=== PATIENT | male | born 1990 | race Caucasian/White ===

== ENCOUNTER 2016-11-25 19:18 | Emergency (ER) | payer OTHER ==
[2016-11-25] MEDS ORDERED: Ketorolac INJ* 60 MG/2 ML VIAL IM ONE (19:26)
[2016-11-25 19:28] VITALS: BP 156/102
--- NOTE | 2016-11-25 20:03 | ED ---
Jesus Talbert Michael, scribed for Bebo Alcocer MD on 11/25/16 at 1929 . 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 The pt reports that he was washing his face when he slipped on water in front of the door of his cell. He landed on his back and hit his head on the ground. The pt c/o neck pain and thoracic back pain which is aggravated with movement. The neck and back pain started immediately after the fall. The pt was brought into the ED with a C-spine brace. He denies DIAMOND and LOC. - History of Current Complaint Chief Complaint: EDBackInjuryPain Stated Complaint: BACK PAIN Hx Obtained From: Patient, EMS, Medical Records Mechanism of Injury: Fall Loss of Consciousness: no loss of consciousness Onset/Duration: Started Minutes Ago, Still Present Onset of Pain: Immediate Onset Severity: Moderate Current Severity: Moderate Aggravating Factor(s): Movement Alleviating Factor(s): Nothing Associated Signs & Symptoms: Positive: Negative - DIAMOND, Other: - back pain and neck pain. Negative: Loss of Consciousness - Allergy/Home Medications Allergies/Adverse Reactions: Allergies Allergy/AdvReac Type Severity Reaction Status Date / Time No Known Allergies Allergy Verified 05/27/16 17:27 PMH/Surg Hx/FS Hx/Imm Hx Endocrine/Hematology History: Denies: Hx Anticoagulant Therapy, Hx Diabetes, Hx Thyroid Disease Cardiovascular History: Denies: Hx Hypertension Respiratory History: Reports: Hx Asthma Denies: Hx Chronic Obstructive Pulmonary Disease (COPD) GI History: Denies: Hx Ulcer History: Denies: Hx Renal Disease Psychiatric History: Denies: Hx Eating Disorder - Surgical History Surgery Procedure, Year, and Place: LEFT ELBOW, RIGHT WRIST as a child - Immunization History Date of Tetanus Vaccine: UNK Date of Influenza Vaccine: 2013 Infectious Disease History: Denies: Hx Hepatitis, Hx Human Immunodeficiency Virus (HIV) - Family History Known Family History: Positive: Hypertension, Diabetes - Social History Occupation: Unemployed Lives: Alone - Senior Living Alcohol Use: Occasionally Substance Use Type: Reports: Marijuana Hx Tobacco Use: Yes Smoking Status (MU): Current Every Day Smoker Type: Cigarettes Amount Used/How Often: 1ppd Length of Time of Smoking/Using Tobacco: since age 8-9 Have You Smoked in the Last Year: Yes Review of Systems Positive: Other - back pain. neck pain. Negative: Headache, Syncope All Other Systems Reviewed And Are Negative: Yes Physical Exam Triage Information Reviewed: Yes Vital Signs On Initial Exam: Initial Vitals Temp Pulse Resp BP Pulse Ox 98.9 F 84 20 156/102 95 11/25/16 19:22 11/25/16 19:22 11/25/16 19:22 11/25/16 19:22 11/25/16 19:22 Vital Signs Reviewed: Yes Appearance: Positive: Well-Appearing, Pain Distress - mild discomfort Skin: Positive: Warm Head/Face: Positive: Normal Head/Face Inspection Eyes: Positive: EOMI, MARTÍNEZ ENT: Positive: Hearing grossly normal Neck: Positive: Supple, Tenderness @ - mild diffuse Respiratory/Lung Sounds: Positive: Clear to Auscultation, Breath Sounds Present Cardiovascular: Positive: RRR Abdomen Description: Positive: Nontender, Soft Bowel Sounds: Positive: Present Musculoskeletal: Positive: Strength/ROM Intact, Other - mild diffuse tenderness thoraco/lumbar area Neurological: Positive: Sensory/Motor Intact, Alert, Oriented to Person Place, Time, Reflexes Intact Diagnostics - Vital Signs Vital Signs Temp Pulse Resp BP Pulse Ox 11/25/16 19:28 98.9 F 84 20 156/102 95 11/25/16 19:22 98.9 F 84 20 156/102 95 - Laboratory Lab Statement: Any lab studies that have been ordered have been reviewed, and results considered in the medical decision making process. - CT CT Lumbar Spine CT Interpretation: No Acute Changes - MILD DEGENERATIVE CHANGES. NO ACUTE OSSEOUS INJURY TO THE LUMBAR SPINE. CT Interpretation Completed By: Radiologist CT Thoracic Spine CT Interpretation: No Acute Changes CT Interpretation Completed By: Radiologist CT Cervical Spine CT Interpretation: No Acute Changes CT Interpretation Completed By: Radiologist Re-Evaluation - Re-Evaluation First Eval Change: Improved Adult Trauma Course/Dx - Diagnoses Provider Diagnoses: back pain post status fall Discharge - Discharge Plan Condition: Stable Disposition: HOME Patient Education Materials: Back Pain (ED) Referrals: No Primary Care Phys,NOPCP [Primary Care Provider] - Additional Instructions: You should take Advil or Ibuprofen for your back pain. Please follow up with local [facility] within the next 2-3 days. The documentation as recorded by the Jesus pitt Michael accurately reflects the service I personally performed and the decisions made by me, Bebo Alcocer MD.
--- NOTE | 2016-11-25 20:04 | RAD ---
HISTORY: Fall, back pain COMPARISONS: None TECHNIQUE: Multiple contiguous axial CT scans were obtained of the cervical spine without intravenous contrast, with coronal and sagittal multiplanar reformations. FINDINGS: BRAIN: The visualized brain is unremarkable CENTRAL CANAL: Evaluation of the central canal is limited on CT technique, however there is no obvious canalicular mass or epidural hemorrhage. ALIGNMENT: The alignment is normal, without subluxation or dislocation. VERTEBRAL BODIES: The odontoid process is intact. The atlantoaxial intervals are symmetric. The vertebral bodies are normal in attenuation, without fracture. JOINTS: There is no subluxation or dislocation MUSCULATURE: Unremarkable INTERVERTEBRAL DISCS: The intervertebral disc spaces are relatively preserved in height. AXIAL IMAGES: On axial images, there is no osseous neural foraminal narrowing or central canal stenosis. SOFT TISSUES: The visualized soft tissues of the neck are unremarkable. The prevertebral fat stripe is preserved. OTHER: None. IMPRESSION: NO ACUTE OSSEOUS INJURY TO THE CERVICAL SPINE
--- NOTE | 2016-11-25 20:04 | RAD ---
HISTORY: Fall, back pain COMPARISONS: None TECHNIQUE: Multiple contiguous axial CT scans were obtained of the lumbar spine without intravenous contrast, with coronal and sagittal multiplanar reformations. FINDINGS: SPINAL CANAL: Evaluation of the central canal is limited on CT technique; however, there is no obvious canalicular mass or epidural hemorrhage. ALIGNMENT: The alignment is normal. VERTEBRAL BODIES: There is no displaced fracture. There is a hemangioma of L3. There are reactive end plate changes from a Schmorl's node at L3-L4 JOINTS: Unremarkable MUSCULATURE: Unremarkable INTERVERTEBRAL DISCS: There is diffuse loss of intervertebral disc height throughout the spine. AXIAL IMAGES: T12-L1: There is no osseous neural foraminal narrowing or central canal stenosis. L1-L2: There is no osseous neural foraminal narrowing or central canal stenosis. L2-L3: There is no osseous neural foraminal narrowing or central canal stenosis. L3-L4: There is no osseous neural foraminal narrowing or central canal stenosis. L4-L5: There is mild disc bulge. There is no osseous neural foraminal narrowing or central canal stenosis. L5-S1: There is mild disc bulge. There is no osseous neural foraminal narrowing or central canal stenosis. SOFT TISSUES: The visualized soft tissues of the abdomen are unremarkable. OTHER: None IMPRESSION: MILD DEGENERATIVE CHANGES. NO ACUTE OSSEOUS INJURY TO THE LUMBAR SPINE.
--- NOTE | 2016-11-25 20:06 | RAD ---
HISTORY: Fall, back pain COMPARISONS: None TECHNIQUE: Multiple contiguous axial CT scans were obtained of the thoracic spine without intravenous contrast, with coronal and sagittal multiplanar reformations. FINDINGS: SPINAL CANAL: Evaluation of the central canal is limited on CT technique; however, there is no obvious canalicular mass or epidural hemorrhage. ALIGNMENT: The alignment is normal. VERTEBRAL BODIES: The vertebral bodies are preserved in height. The bones are normal in attenuation. JOINTS: Unremarkable MUSCULATURE: Unremarkable INTERVERTEBRAL DISCS: There is mild diffuse loss of intervertebral disc height throughout the spine. AXIAL IMAGES: There is no osseous central canal stenosis or neuroforaminal narrowing. SOFT TISSUES: The visualized soft tissues of the chest and abdomen are unremarkable. OTHER: None IMPRESSION: NO ACUTE OSSEOUS INJURY TO THE THORACIC SPINE
== END 2016-11-25 20:44 | disposition home or self-care (01) ==
LOC: ED 19:18
DX: M54.9 Dorsalgia, unspecified (principal); M54.2 Cervicalgia; F17.210 Nicotine dependence, cigarettes, uncomplicated; W19.XXXA Unspecified fall, initial encounter; Y93.9 Activity, unspecified; Y92.9 Unspecified place or not applicable
CPT/HCPCS: 72125; 72128; 72131; 96372; 99282; J1885

== ENCOUNTER 2017-05-17 10:40 | Day surgery (SDC) | payer OTHER ==
[~2017-05-17 10:40] MED LIST: Buffered Lidocaine 0.9% SYRIN* 5 ML/SYR SYRINGE INTRADERM ONE; Dexamethasone IV* 4 MG/ML 1 ML (4 MG) ONE; Famotidine IV* 10 MG/ML 2 ML (20 mg) IV ONE; Famotidine IV* 10 MG/ML 2 ML (20 mg) ONE; KETAMINE HCL* 50 MG/ML 10 ML VIAL ONE; Ketorolac INJ* 30 MG/ML 1 ML VIAL ONE; Lidocaine 2% PF * 5 ML VIAL ONE; Metoclopramide TAB* 10 MG ONE; Metoclopramide TAB* 10 MG PO ONE; Midazolam* 1 MG/ML 5 ML VIAL (5 MG) ONE; Ondansetron INJ* 2 MG/ML VIAL ONE; Propofol* 10 MG/ML 20 ML BTL IV PUSH ONE; ceFAZolin 2 GM PREMIX (*) 50 ML IVPB ONE; fentaNYL* 50 MCG/ML 2 ML VIAL (100 MCG VIAL) ONE
[2017-05-17] MEDS ORDERED: Bupivacaine 0.25% SDV* 30 ML ONE ×2 (10:42→13:33)
[2017-05-17] MEDS ORDERED: Ondansetron INJ* 2 MG/ML VIAL IV PRN (13:30)
[2017-05-17] MEDS ORDERED: Acetaminophen TAB* 325 MG PO PRN (13:30)
[2017-05-17] MEDS ORDERED: Acetaminophen TAB* 325 MG ONE (15:43)
[2017-05-17 16:48] VITALS: BP 143/86
--- NOTE | 2017-05-18 02:36 | OP ---
DATE OF OPERATION: 05/17/17 - [facility] DATE OF : 89 SURGEON: Bridger Lemon MD. FINISHER WALLBOARD AND PLASTERBOARD: RYDER Beckham. An speech therapy assistant was needed for the entirety of the case to aid in positioning of the arm and pin advancement. ANESTHESIOLOGIST: Dr. Lott. ANESTHESIA: General. PRE-OP DIAGNOSIS: Right displaced fifth metacarpal neck fracture. POST-OP DIAGNOSIS: Right displaced fifth metacarpal neck fracture. OPERATIVE PROCEDURE: Closed reduction and percutaneous pinning of right fifth metacarpal neck fracture. INDICATIONS: Khari had a highly displaced metacarpal neck fracture, about 70 degrees or more. We talked about treatment options. He had elected to proceed with closed reduction and pinning. We talked about risks and benefits. ESTIMATED BLOOD LOSS: 2 mL. COMPLICATIONS: None. FINDINGS: As expected. DESCRIPTION OF PROCEDURE: Khari was seen in the preoperative holding area. The correct side, site, and procedure were identified. We came back to the operating room where anesthesia was induced. The arm was prepped and draped in the usual fashion and time-out was performed. I began by making sure I could close reduce the fracture under the mini C-arm. I then made a 1-cm incision about a centimeter proximal to the base of the fifth metacarpal. I made a cortical window with a larger K-wire on the ulnar aspect at the base of the fifth metacarpal. I then took an appropriately sized K-wire and bent the tip, so as to be able to direct the wire. I placed this on the T-handle renetta. I then advanced it into the cortical window and in antegrade fashion used the T-handle renetta to advance it up to the fracture site. I then closed reduced the fracture and had my speech therapy assistant advanced the wire up to the subchondral bone. The reduction was excellent. The pin placement was excellent. I took a second 0.45 K-wire and crossed the fracture site from distal ulnar to proximal radial. I got some final fluoroscopic images and clipped the wire. I placed a pin cap on the proximal wire. The part of the incision that was occupied by the K-wire was closed with 4-0 nylon simple interrupted sutures. The wound had been irrigated. The pin sites were dressed with Xeroform, 4x4s, sterile Webril was applied and ulnar gutter splint grabbing the ring and small fingers in the protected position was applied. He was then woken up and taken to the recovery room in stable condition. I had exsanguinated the arm with the Esmarch and inflated the tourniquet to 250 mmHg at the beginning of the case and let the tourniquet down after the splint placement. [id number]/CPS #: [id number] MTDD
--- NOTE | 2017-05-18 13:56 | RAD ---
INDICATION: S 62.306A COMPARISONS: May 09, 2017 TECHNIQUE: Fluoroscopy was provided for a surgical procedure. Total fluoroscopy time is: 1 minute, 29 seconds FINDINGS: Spot images demonstrate percutaneous fixation of the fifth metacarpal. IMPRESSION: FLUOROSCOPY WAS PROVIDED FOR A SURGICAL PROCEDURE CPT II Codes: 6045F
== END 2017-05-17 16:24 | disposition home or self-care (01) ==
LOC: OREAST 10:40
PROVIDERS: ATTEND Orthopaedic Surgery Hand Surgery
DX: S62.336A Displaced fracture of neck of fifth metacarpal bone, right hand, initial encounter for closed fracture (principal); W22.8XXA Striking against or struck by other objects, initial encounter; Y92.89 Other specified places as the place of occurrence of the external cause
CPT/HCPCS: 76000; A9270-GY; C1776; J0690; J1100; J1885; J2250; J2405; J2704; J3010

== ENCOUNTER 2017-09-03 01:25 | Emergency (ER) | payer OTHER ==
[2017-09-03] MEDS ORDERED: Morphine INJ* 4 MG/ML 1 ML CARPUJECT IV ONE (02:03)
[2017-09-03] MEDS ORDERED: Pantoprazole IV* 40 MG IV ONE (02:03)
[2017-09-03] MEDS ORDERED: NS 0.9% 1000 ML* 1,000 ML IV ONE (02:03)
[2017-09-03] MEDS ORDERED: Metoclopramide IV* 5 MG/ML 2 ML VIAL IV ONE (02:03)
[2017-09-03 02:45] LABS: ABS Basophils 0.1 10^3/ul (0-0.2); ABS Eosinophils 0.1 10^3/ul (0-0.6); ABS Monocytes 0.8 10^3/ul (0-0.8); ABS Neutrophils 7.3 10^3/ul (1.5-7.7); ABS Nucleated RBC 0 10^3/ul; Eosinophil % 0.6 % (0-6); Hematocrit 44 % (42-52); Hemoglobin 15.3 g/dl (14.0-18.0); Lymphocyte % 19.7 % (25-47); Mean Corpuscular HGB Conc 35 g/dl (31-36); Mean Corpuscular Hemoglobin 30 pg (27-31); Mean Corpuscular Volume 85 fL (80-94); Mean Platelet Volume 10 um3 (7.4-10.4); Nucleated Red Blood Cells % 0; Platelet Count 200 10^3/ul (150-450); Red Blood Count 5.19 10^6/ul (4.0-5.4); Red Cell Distribution Width 14 % (10.5-15); White Blood Count 10.3 10^3/ul (3.5-10.8)
[2017-09-03 02:46] LABS: Urine Appearance Clear; Urine Blood Negative (Negative); Urine Color Yellow; Urine Ketones Negative (Negative); Urine Protein Negative (Negative); Urine Specific Gravity 1.018 (1.010-1.030); Urine Urobilinogen Negative (Negative)
[2017-09-03 02:58] LABS: INR 0.88 (0.77-1.02)
[2017-09-03 03:00] LABS: EGFR Non-African American 136.3 (>60)
[2017-09-03] MEDS ORDERED: Iohexol 300* (CONTRAST) 10 ML SDV IV ONE (03:10)
--- NOTE | 2017-09-03 05:29 | ED ---
Lisa Talbert Edward, scribed for Hung Marroquin MD on 09/03/17 at 0145 . Abdominal Pain/Male - HPI Summary HPI Summary: 26 y/o male presents to the ED c/o ABD pain starting this morning. The pt started vomiting at 23:00 tonight (2x) with blood in the vomit. The pain is rated 7/10 in severity at triage. Pt states he has not eaten since this morning. Denies use of medication. The pain is worst in the mid ABD. Pt states his ABD pain originally started around 1 month ago and comes intermittently weekly with intermittent N/V. This is the first time the pt has had blood in his vomit. Last bowel movement yesterday. - History of Current Complaint Chief Complaint: EDAbdPain Stated Complaint: VOMITING BLOOD Time Seen by Provider: 09/03/17 01:44 Hx Obtained From: Patient Onset/Duration: Lasting Weeks Timing: Intermittent Pain Intensity: 7 Pain Scale Used: 0-10 Numeric Location: Other - mid ABD Aggravating Factor(s): Food Alleviating Factor(s): Nothing Associated Signs And Symptoms: Positive: Nausea, Vomiting - with blood - Allergies/Home Medications Allergies/Adverse Reactions: Allergies Allergy/AdvReac Type Severity Reaction Status Date / Time No Known Allergies Allergy Verified 05/17/17 10:59 PMH/Surg Hx/FS Hx/Imm Hx Previously Healthy: No Endocrine/Hematology History: Denies: Hx Anticoagulant Therapy, Hx Diabetes, Hx Thyroid Disease Cardiovascular History: Denies: Hx Hypertension Respiratory History: Reports: Hx Asthma - as a child Denies: Hx Chronic Obstructive Pulmonary Disease (COPD), Other Respiratory Problems/Disorders GI History: Denies: Hx Ulcer History: Denies: Hx Renal Disease Musculoskeletal History: Reports: Hx Tendonitis - right elbow Sensory History: Reports: Hx Contacts or Glasses Denies: Hx Hearing Aid Opthamlomology History: Reports: Hx Contacts or Glasses Psychiatric History: Denies: Hx Eating Disorder - Surgical History Surgery Procedure, Year, and Place: LEFT ELBOW,. 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 GENERAL: Patient is a well-developed and nourished male who is lying comfortable in the stretcher. Patient is not in any acute respiratory distress. HEAD AND FACE: No signs of trauma. No ecchymosis, hematomas or skull depressions. No sinus tenderness. EYES: PERRLA, EOMI x 2, No injected conjunctiva, no nystagmus. EARS: Hearing grossly intact. Ear canals and tympanic membranes are within normal limits. MOUTH: Oropharynx within normal limits. NECK: Supple, trachea is midline, no adenopathy, no JVD, no carotid bruit, no c- spine tenderness, neck with full ROM. CHEST: Symmetric, no tenderness at palpation LUNGS: Clear to auscultation bilaterally. No wheezing or crackles. CVS: Regular rate and rhythm, S1 and S2 present, no murmurs or gallops appreciated. ABDOMEN: Soft, LUQ tenderness. No signs of distention. No rebound no guarding, and no masses palpated. Bowel sounds are normal. EXTREMITIES: FROM in all major joints, no edema, no cyanosis or clubbing. NEURO: Alert and oriented x 3. No acute neurological deficits. Speech is normal and follows commands. SKIN: Dry and warm Triage Information Reviewed: Yes Vital Signs On Initial Exam: Initial Vitals Temp Pulse Resp BP Pulse Ox 97 F 62 16 111/70 99 09/03/17 01:31 09/03/17 01:31 09/03/17 01:31 09/03/17 01:31 09/03/17 01:31 Vital Signs Reviewed: Yes Diagnostics - Vital Signs Vital Signs Temp Pulse Resp BP Pulse Ox 09/03/17 01:31 97 F 62 16 111/70 99 - Laboratory Result Diagrams: 09/03/17 02:20 09/03/17 02:20 Lab Statement: Any lab studies that have been ordered have been reviewed, and results considered in the medical decision making process. - CT ABD/PEL CT CT Interpretation: Positive (See Comments) - Complex right adrenal mass likely reflects an adenoma; however, the density is not definitively to an extruded. Correlation with history and confirmation of stability or benign characteristics is recommended. CT Interpretation Completed By: Radiologist - ED PHYSICIAN REVIEWS AND AGREES Re-Evaluation - Re-Evaluation 1 Re-Evaluation Time: 05:13 Change: Improved Comment: Discussed CT results, plan of care Abdominal Pain Fem Course/Dx - Course Assessment/Plan: 26 y/o male presents to the ED c/o ABD pain starting this morning. The pt started vomiting at 23:00 tonight (2x) with blood in the vomit. ABD/PEL CT WITH CONTRAST SHOWS Complex right adrenal mass likely reflects an adenoma; however, the density is not definitively to an extruded. Correlation with history and confirmation of stability or benign characteristics is recommended. At this point I reviewed lab and CT results with the pt and informed of his R adrenal mass, advised to see PCP. I believe the pt's sx are possibly secondary to gastro-esophageal reflux. Pt will be d/c home with PPI ( proton pump inhibitor) and f/u with outside PCP referral. - Diagnoses Provider Diagnoses: R adrenal mass, possible ademona, Gastro-esophageal reflux Discharge - Discharge Plan Condition: Stable Disposition: HOME Patient Education Materials: Gastroesophageal Reflux Disease (ED) Referrals: [facility] [place] PHYSICIAN REFERRAL [Outside] - 4 Days (PLEASE F/U IN 3-5 DAYS) Additional Instructions: RETURN TO THE ED FOR WORSENING SYMPTOMS The documentation as recorded by the Lisa pitt Edward accurately reflects the service I personally performed and the decisions made by , Hung Marroquin MD.
[2017-09-03 06:01] VITALS: BP 121/63
--- NOTE | 2017-09-03 07:58 | RAD ---
CLINICAL HISTORY: Abdominal pain, hematemesis COMPARISON: May 28, 2016 TECHNIQUE: Multiple contiguous axial CT scans were obtained of the abdomen and pelvis after the administration of intravenous contrast. Coronal and sagittal multiplanar reformations are submitted for review. Oral contrast was administered. Delayed images were obtained through the abdomen and pelvis. FINDINGS: LUNG BASES: The lung bases are clear. LIVER: The liver is diffusely low in attenuation compared to the spleen. There are no focal hepatic parenchymal masses. Liver measures 21 cm in long axis BILE DUCTS: There is no intrahepatic or extrahepatic biliary dilatation. GALLBLADDER: The gallbladder is normal, without pericholecystic inflammatory change. PANCREAS: The pancreas is normal, without mass or ductal dilatation. SPLEEN: Normal in size and appearance. UPPER GI TRACT: Evaluation of the gastrointestinal tract is limited by incomplete gastric distention. The upper GI tract is unremarkable. SMALL BOWEL AND MESENTERY: The small bowel is normal in contour, course, and caliber. There is no obstruction or dilatation. COLON: The colon is normal in contour, course, caliber. There is no pericolonic inflammatory change. ADRENALS: There is a 1.6 cm right adrenal nodule measuring roughly 70 Hounsfield units in attenuation. KIDNEYS: The kidneys are normal in shape, size, contour, and axis. There is no hydronephrosis or nephrolithiasis. BLADDER: The bladder is smooth in contour. PELVIC ORGANS: The prostate gland is normal. The seminal vesicles are symmetric. AORTA: The aorta is normal. IVC: Unremarkable LYMPH NODES: There is no lymphadenopathy by size criteria. ABDOMINAL WALL: There is no evidence for abdominal wall hernia. BONES AND SOFT TISSUES: There is a hemangioma of L3. There is a lucent lesion along the inferior endplate of L3 with surrounding sclerosis. This can identified 2016 examination and is stable. OTHER: None IMPRESSION: 1. HEPATOMEGALY WITH FATTY INFILTRATION OF THE LIVER. 2. 1.6 CM RIGHT ADRENAL NODULE, WITHOUT DIAGNOSTIC IMAGING FEATURES FOR ADENOMA. IN THE ABSENCE OF A HISTORY OF MALIGNANCY, RECOMMEND 12 MONTH FOLLOW-UP CONTRAST ENHANCED ADRENAL PROTOCOL CT OR ADRENAL PROTOCOL MRI. 3. THERE IS A LUCENT LESION WITH SURROUNDING SCLEROSIS OF THE L3 VERTEBRAL BODY, STABLE FROM 2016. THIS MAY REPRESENT A SCHMORL'S NODE WITH SURROUNDING SCLEROTIC REACTIVE ENDPLATE CHANGE. THE DIFFERENTIAL ALSO INCLUDES AN OSTEOID OSTEOMA IN THE CORRECT CLINICAL SETTING.
== END 2017-09-03 06:01 | disposition home or self-care (01) ==
LOC: ED 01:25
DX: E27.9 Disorder of adrenal gland, unspecified (principal); K21.9 Gastro-esophageal reflux disease without esophagitis; K76.0 Fatty (change of) liver, not elsewhere classified; M48.8X6 Other specified spondylopathies, lumbar region; Z87.891 Personal history of nicotine dependence
CPT/HCPCS: 36415; 74177; 80053; 81003; 82150; 83690; 85025; 85610; 85730; 86140; 96374; 96375; 99284; J2270; J2765; Q9967

== ENCOUNTER 2019-04-28 15:36 | Emergency (ER) | payer OTHER ==
[2019-04-28 17:29] VITALS: BP 126/78
--- NOTE | 2019-04-28 18:03 | UC ---
Knee Pain HPI - HPI Summary HPI Summary: 28-year-old male presents with complaints of left knee pain. Reports he was playing basketball yesterday, jumped for a ball, came down and accidentally stepped on someone's foot causing a twisting injury to the left knee. States he felt a pop to the lateral aspect of the knee. Has had persistent pain since that time. He does note some mild swelling to the lateral aspect of the knee. No bruising. He has been able to walk and bear weight since the injury although with some discomfort. Patient has taken acetaminophen with mild reduction in the pain. States he has also been icing the knee. Denies any numbness or tingling. - History of Current Complaint Chief Complaint: UCLowerExtremity Stated Complaint: LT KNEE INJURY Time Seen by Provider: 04/28/19 17:20 Hx Obtained From: Patient Pain Intensity: 4 - Allergies/Home Medications Allergies/Adverse Reactions: Allergies Allergy/AdvReac Type Severity Reaction Status Date / Time No Known Allergies Allergy Verified 04/28/19 17:29 Home Medications: Home Medications Acetaminophen [Acetaminophen Extra Strength] 1,000 mg PO DAILY PRN 04/28/19 [ History Confirmed 04/28/19] PMH/Surg Hx/FS Hx/Imm Hx Previously Healthy: Yes - Denies significant PMH Other History Of: Negative For: Anticoagulant Therapy - Surgical History Surgical History: Yes Surgery Procedure, Year, and Place: LEFT ELBOW,. RIGHT WRIST. Right hand ORIF - Family History Known Family History: Positive: Hypertension, Diabetes - Social History Occupation: Employed Full-time Lives: With Family Alcohol Use: None Substance Use Type: Heroin, Marijuana Substance Use Comment - Amount & Last Used: heroin user in past- 2 yrs Smoking Status (MU): Heavy Every Day Tobacco Smoker Type: Cigarettes Amount Used/How Often: 1ppd Length of Time of Smoking/Using Tobacco: since age 8-9 Have You Smoked in the Last Year: Yes When Did the Patient Quit Smoking/Using Tobacco: quit one month ago when incarcerated Review of Systems All Other Systems Reviewed And Are Negative: Yes Constitutional: Positive: Negative Skin: Negative: Bruising Respiratory: Positive: Negative Cardiovascular: Positive: Negative Gastrointestinal: Positive: Negative Genitourinary: Positive: Negative Motor: Negative: Weakness Neurovascular: Negative: Decreased Sensation Musculoskeletal: Positive: Other: - See HPI Neurological: Positive: Negative Is Patient Immunocompromised?: No Physical Exam - Summary Physical Exam Summary: GENERAL APPEARANCE: Well developed, well nourished, alert and cooperative, and appears to be in no acute distress. CARDIAC: Normal S1 and S2. No S3, S4 or murmurs. Rhythm is regular. There is no peripheral edema, cyanosis or pallor. Extremities are warm and well perfused. Capillary refill is less than 2 seconds. Peripheral pulses intact. LUNGS: Clear to auscultation without rales, rhonchi, wheezing or diminished breath sounds. ABDOMEN: Positive bowel sounds. Soft, nondistended, nontender. No guarding or rebound. No masses or hepatosplenomegally. MUSKULOSKELETAL: Normal muscular development. Limping gait. EXTREMITIES: Tenderness along the lateral aspect of the left knee joint with mild edema. Full passive range of motion to the knee. No laxity noted. No erythema or ecchymosis. Circulation and sensation intact. SKIN: Skin normal color, texture and turgor with no lesions or eruptions. Triage Information Reviewed: Yes Vital Signs: Initial Vital Signs Temp 98.7 F 04/28/19 17:20 Pulse 84 04/28/19 17:20 Resp 16 04/28/19 17:20 BP 126/78 04/28/19 17:20 Pulse Ox 96 04/28/19 17:20 Vital Signs Reviewed: Yes Diagnostics - Radiology No standard instances Radiology Interpretation Completed By: Radiologist Summary of Radiographic Findings: Indication: Left knee pain. 4 views of the left knee demonstrates no fracture. No joint effusion is noted. No other bone or joint abnormality is identified. IMPRESSION: Unremarkable left knee. Knee Pain Course/Dx - Course Course Of Treatment: 28-year-old male presents with complaints of left knee pain. Reports he was playing basketball yesterday, jumped for a ball, came down and accidentally stepped on someone's foot causing a twisting injury to the left knee. States he felt a pop to the lateral aspect of the knee. Has had persistent pain since that time. He does note some mild swelling to the lateral aspect of the knee. No bruising. He has been able to walk and bear weight since the injury although with some discomfort. Patient has taken acetaminophen with mild reduction in the pain. States he has also been icing the knee. Denies any numbness or tingling. Afebrile. Vital signs stable. Patient had tenderness along the lateral aspect of the left knee joint with mild edema. Full passive range of motion to the knee. No laxity noted. No erythema or ecchymosis. Circulation and sensation intact. X-ray showed no acute osseous injury. Recommending conservative treatment for a left knee sprain including naproxen 500 mg 1 tablet every 12 hours for the next 5-7 days then every 12 hours as needed as well as RICE. He is to follow-up with orthopedic surgery in 7 days if symptoms are not improving. Anticipatory guidance and warning symptoms are reviewed with patient. Verbalizes understanding and agrees with plan of care. - Differential Dx/Diagnosis Differential Diagnosis/HQI/PQRI: Fracture (Closed), Internal Derangement Of Knee , Sprain Provider Diagnosis: Left knee sprain Discharge ED - Sign-Out/Discharge Documenting (check all that apply): Patient Departure All imaging exams completed and their final reports reviewed: Yes - Discharge Plan Condition: Stable Disposition: HOME Prescriptions: Naproxen [Naproxen 500 mg tab] 500 mg PO Q12HR #30 tablet Patient Education Materials: Knee Sprain (ED) Referrals: No Primary Care Phys,NOPCP [Primary Care Provider] - Additional Instructions: The x-ray performed in the clinic today showed no evidence of a fracture or dislocation. Rest the knee as much as possible. Apply ice to the affected area for 15-20 minutes at least 4 times a day to help with the pain and swelling. Elevate the leg to help reduce swelling. Use an MARVIN wrap or compression sleeve to help manage the swelling. Take naproxen 500 mg 1 tab every 12 hours with food for the next 5-7 days then may take every 12 hours as needed for pain. Follow up with orthopedic surgery in 5-7 days if symptoms do not improve. Seek immediate medical attention if you have severe pain not managed with pain medication, you are unable to walk or bear any weight, develop numbness or tingling in the leg or foot, or have any worsening of symptoms. - Billing Disposition and Condition Condition: STABLE Disposition: Home
== END 2019-04-28 18:18 | disposition home or self-care (01) ==
LOC: UCCORT 15:36
DX: S83.92XA Sprain of unspecified site of left knee, initial encounter (principal); X50.1XXA Overexertion from prolonged static or awkward postures, initial encounter; Y93.67 Activity, basketball; Y92.9 Unspecified place or not applicable; Z87.891 Personal history of nicotine dependence
CPT/HCPCS: 99212; G0463

== ENCOUNTER 2019-06-23 15:04 | Emergency (ER) | payer OTHER ==
--- NOTE | 2019-06-23 15:20 | UC ---
Nausea/Vomiting/Diarrhea HPI - HPI Summary HPI Summary: Patient is a 28yo male presenting with nausea and vomiting that began earlier this morning. Patient states he vomited 5x over the course of 4-5 hours. Notes blood tinged emesis the last two times he vomited. Notes central abdominal pain that has been intermittent for the past 2-3 weeks. Notes today is has moved more to the right side. Denies current pain. Denies decreased appetite. Denies changes in BMs. Denies fevers and chills. Last BM was last night and normal. Notes for at least 4 years now that he gets intermittent R testicular "tugging sensation" for about 3 days every 6 months. States it was "worked up" but no one knew what it was. States he experienced the same thing this morning but it has resolved. Denies changes in urination other than urgency at times. Denies hematuria. Denies burning, itching, or lesions. Denies discharge. Denies h/o GI disorders or abdominal surgeries. - History of Current Complaint Stated Complaint: VOMITING Hx Obtained From: Patient Onset/Duration: Gradual Onset, Lasting Weeks - Allergies/Home Medications Allergies/Adverse Reactions: Allergies Allergy/AdvReac Type Severity Reaction Status Date / Time No Known Allergies Allergy Verified 06/23/19 16:38 Home Medications: Home Medications NK [No Home Medications Reported] 06/23/19 [History Confirmed 06/23/19] PMH/Surg Hx/FS Hx/Imm Hx Previously Healthy: Yes Other History Of: Negative For: Anticoagulant Therapy - Surgical History Surgical History: Yes Surgery Procedure, Year, and Place: LEFT ELBOW,. RIGHT WRIST. 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 Negative: Fever, Chills ENT: Positive: Negative Respiratory: Positive: Negative Cardiovascular: Positive: Negative Gastrointestinal: Positive: Abdominal Pain - central and RLQ pain, Vomiting, Nausea. Negative: Diarrhea Genitourinary: Positive: Urgency Musculoskeletal: Positive: Negative Neurological: Positive: Negative Physical Exam Triage Information Reviewed: Yes Appearance: Well-Appearing, No Pain Distress, Well-Nourished Vital Signs: Laboratory Tests 06/23/19 15:36 POC Urine Color Dark yellow POC Urine Clarity Clear POC Urine pH 5.5 POC Ur Specif Orient >= 1.030 POC Urine Protein Negative POC Ur Glucose (UA) Negative POC Urine Ketones Negative POC Urine Blood Negative POC Urine Nitrite Negative POC Urine Bilirubin Negative POC Urine Urobilinogen 0.2 POC U Leukocyte Esteras Negative Vital Signs (72 hours) 06/23/19 15:22 Temperature 98.1 F Pulse Rate 98 Respiratory 18 Rate Blood Pressure 126/82 (mmHg) O2 Sat by Pulse 98 Oximetry Vital Signs Reviewed: Yes Eyes: Positive: Conjunctiva Clear ENT: Positive: Hearing grossly normal Neck: Positive: Supple Respiratory Exam: Normal Respiratory: Positive: Lungs clear, Normal breath sounds, No respiratory distress Cardiovascular Exam: Normal Cardiovascular: Positive: RRR Abdomen Description: Positive: Soft, McBurney's Point Tenderness. Negative: Nontender - RLQ tenderness to palpation, CVA Tenderness (R), CVA Tenderness (L) , Distended, Guarding Bowel Sounds: Positive: Present, Hypoactive Neurological: Positive: Alert Psychological: Positive: Age Appropriate Behavior Skin Exam: Normal Naus/Vom/Diarrhea Course/Dx - Course Course Of Treatment: Discussed concern for possible appendicitis and recommendation of going straight to the emergency room for further evaluation. Patient initially denied , stating he has to work tonight. I informed patient of consequences of not seeking care at emergency room, which included all complications of ruptured appendix. Patient voiced understanding and finally agreed to go to the ED. Patient declines transfer via ambulance, stating his mom was in the car and will take him. Patient stable and in no apparent distress upon departure. Dr. Hood also examined the patient and agreed with the treatment plan. - Differential Dx/Diagnosis Differential Diagnoses - Male: Appendicitis Provider Diagnosis: RLQ abdominal pain, Nausea and vomiting Condition At Discharge: Stable Discharge ED - Sign-Out/Discharge Documenting (check all that apply): Patient Departure All imaging exams completed and their final reports reviewed: No Studies - Discharge Plan Condition: Stable Disposition: HOME-RECOMMEND TO ED Referrals: No Primary Care Phys,NOPCP [Primary Care Provider] - Additional Instructions: The provider that evaluated you today thinks that you need additional testing that can be completed the emergency department. It is recommended that you go directly to emergency department for further evaluation. This evaluation included blood work or imaging. This testing will be directed and decided by the provider that evaluates you at the emergency department. If pain becomes worse, you feel lightheaded, you have uncontrolled vomiting, or you have any other concerns while you are being driven to emergency department as recommended to pullover and contact 911. - Billing Disposition and Condition Condition: STABLE Disposition: Home-Recommend to ED - Attestation Statements Provider Attestation: chart reviewed
[2019-06-23 15:26] VITALS: BP 126/82
[2019-06-23] MEDS ORDERED: Ondansetron ODT TAB* 4 MG SL ONE (15:40)
== END 2019-06-23 16:09 | disposition home health service (06) ==
LOC: UCEAST 15:04
DX: R10.31 Right lower quadrant pain (principal); R11.2 Nausea with vomiting, unspecified; F17.210 Nicotine dependence, cigarettes, uncomplicated
CPT/HCPCS: 81003; 99212; A9270-GY; G0463

== ENCOUNTER 2019-06-23 16:27 | Emergency (ER) | payer SELFPAY ==
[2019-06-23] MEDS ORDERED: NS 0.9% 1000 ML** 1,000 ML IV ONE (17:11)
[2019-06-23] MEDS ORDERED: Ondansetron INJ* 2 MG/ML VIAL IV ONE (17:12)
--- NOTE | 2019-06-23 17:12 | ED ---
Abdominal Pain/Male - HPI Summary HPI Summary: Patient complains of right lower quadrant pain times several weeks. Pain described as intermittent, lasting 20-30 minutes at a time. Pain described as sharp. Patient states pain was prolonged over hours today with associated nausea and vomiting. Patient went to urgent care was sent to the ED for further evaluation. Patient was given Zofran at immediate care with no further vomiting. Denies fever, cough, sore throat, CP, SOB, diarrhea, change in urine , change in BM, penile or testicular symptoms. Patient eating and drinking normally. Medical history is none. Abdominal surgical history is none. - History of Current Complaint Chief Complaint: EDAbdPain Stated Complaint: ABD PAIN/VOMITING BLOOD PER PT Time Seen by Provider: 06/23/19 17:07 Hx Obtained From: Patient Onset/Duration: Gradual Onset, Lasting Weeks Timing: Intermittent, Lasting Minutes Severity Initially: Moderate Severity Currently: Moderate Pain Intensity: 6 Pain Scale Used: 0-10 Numeric Location: Discrete At: RLQ Radiates: No Character: Sharp Aggravating Factor(s): Nothing Alleviating Factor(s): Nothing Associated Signs And Symptoms: Positive: Nausea, Vomiting - Allergies/Home Medications Allergies/Adverse Reactions: Allergies Allergy/AdvReac Type Severity Reaction Status Date / Time No Known Allergies Allergy Verified 06/23/19 16:38 PMH/Surg Hx/FS Hx/Imm Hx Endocrine/Hematology History: Denies: Hx Anticoagulant Therapy, Hx Diabetes, Hx Thyroid Disease Cardiovascular History: Denies: Hx Hypertension Respiratory History: Reports: Hx Asthma - as a child Denies: Hx Chronic Obstructive Pulmonary Disease (COPD), Other Respiratory Problems/Disorders GI History: Denies: Hx Ulcer History: Denies: Hx Renal Disease Musculoskeletal History: Reports: Hx Tendonitis - right elbow Sensory History: Reports: Hx Contacts or Glasses Denies: Hx Hearing Aid Opthamlomology History: Reports: Hx Contacts or Glasses EENT History: Denies: Hx Deafness Psychiatric History: Denies: Hx Eating Disorder - Surgical History Surgery Procedure, Year, and Place: LEFT ELBOW,. RIGHT WRIST. Right hand ORIF Hx Anesthesia Reactions: No - Immunization History Date of Tetanus Vaccine: UNK Date of Influenza Vaccine: 2013 Infectious Disease History: No Infectious Disease History: Denies: Hx Hepatitis, Hx Human Immunodeficiency Virus (HIV), Traveled Outside the [place] in Last 30 Days - Family History Known Family History: Positive: Hypertension, Diabetes - Social History Alcohol Use: None Substance Use Type: Reports: Heroin, Marijuana Substance Use Comment - Amount & Last Used: heroin user in past- 2 yrs Hx Tobacco Use: Yes Smoking Status (MU): Heavy Every Day Tobacco Smoker Type: Cigarettes Amount Used/How Often: 1ppd Length of Time of Smoking/Using Tobacco: since age [age] Have You Smoked in the Last Year: Yes Review of Systems Constitutional: Negative Eyes: Negative ENT: Negative Cardiovascular: Negative Respiratory: Negative Positive: Abdominal Pain, Vomiting, Nausea Genitourinary: Negative Musculoskeletal: Negative Skin: Negative Neurological: Negative Psychological: Normal All Other Systems Reviewed And Are Negative: Yes Physical Exam - Summary Physical Exam Summary: Tenderness right lower quadrant. Abdominal exam otherwise unremarkable. Nontoxic-appearing. No vomiting here in ED. Triage Information Reviewed: Yes Vital Signs On Initial Exam: Initial Vitals Temp Pulse Resp BP Pulse Ox 97.6 F 95 18 128/92 99 06/23/19 16:34 06/23/19 16:34 06/23/19 16:34 06/23/19 16:34 06/23/19 16:34 Vital Signs Reviewed: Yes Appearance: Positive: Well-Appearing Skin: Positive: Warm Head/Face: Positive: Normal Head/Face Inspection Eyes: Positive: Normal Neck: Positive: Supple Respiratory/Lung Sounds: Positive: Clear to Auscultation Cardiovascular: Positive: Normal Abdomen Description: Positive: Other: Musculoskeletal: Positive: Normal Neurological: Positive: Normal Psychiatric: Positive: Normal AVPU Assessment: Alert - Brenda Coma Scale Best Eye Response: 4 - Spontaneous Best Motor Response: 6 - Obeys Commands Best Verbal Response: 5 - Oriented Coma Scale Total: 15 Procedures - Sedation Patient Received Moderate/Deep Sedation with Procedure: No Diagnostics - Vital Signs Vital Signs Temp Pulse Resp BP Pulse Ox 06/23/19 16:34 97.6 F 95 18 128/92 99 - Laboratory Result Diagrams: 06/23/19 17:25 06/23/19 17:25 Lab Statement: Any lab studies that have been ordered have been reviewed, and results considered in the medical decision making process. Abdominal Pain Male Course/Dx - Course Course Of Treatment: Patient complains of right lower quadrant pain times several weeks. Pain described as intermittent, lasting 20-30 minutes at a time. Pain described as sharp. Patient states pain was prolonged over hours today with associated nausea and vomiting. Patient went to urgent care was sent to the ED for further evaluation. Patient was given Zofran at immediate care with no further vomiting. Denies fever, cough, sore throat, CP, SOB, diarrhea, change in urine, change in BM, penile or testicular symptoms. Patient eating and drinking normally. Medical history is none. Abdominal surgical history is none. Vital signs within normal limits. WBC 12.8. CRP 8.82. Labs otherwise unremarkable. CT abdomen and pelvis with contrast positive for anatomically dilated appendix unchanged from prior CT 09/03/2017 without adjacent inflammatory stranding or other findings of acute appendicitis. Also positive for right adrenal adenoma. No follow-up imaging indicated ACR guidelines. - Diagnoses Provider Diagnoses: Abdominal pain, Nausea & vomiting Discharge ED - Sign-Out/Discharge Documenting (check all that apply): Patient Departure - Discharge Plan Condition: Stable Disposition: HOME Prescriptions: Ondansetron ODT TAB* [Zofran 4 MG Odt TAB*] 4 mg PO Q8H PRN 4 Days #14 tab.odt PRN Reason: Nausea Patient Education Materials: Acute Nausea and Vomiting (ED), Acute Abdominal Pain (ED) Referrals: No Primary Care Phys,NOPCP [Primary Care Provider] - Additional Instructions: Continue fluids to maintain hydration. Take Zofran as directed for nausea if needed. Return to the ED for any new or worsening symptoms. - Billing Disposition and Condition Condition: STABLE Disposition: Home
[2019-06-23 17:36] LABS: ABS Basophils 0.1 10^3/ul (0-0.2); ABS Eosinophils 0.2 10^3/ul (0-0.6); ABS Lymphocytes 2.7 10^3/ul (1.0-4.8); ABS Monocytes 0.9 10^3/ul (0-0.8); Eosinophil % 1.2 %; Hematocrit 46 % (42-52); Hemoglobin 15.7 g/dL (14.0-18.0); Lymphocyte % 20.9 %; Mean Corpuscular HGB Conc 34 g/dL (31-36); Mean Corpuscular Hemoglobin 29 pg (27-31); Mean Corpuscular Volume 84 fL (80-94); Mean Platelet Volume 9.9 fL (7.4-10.4); Platelet Count 211 10^3/uL (150-450); Red Blood Count 5.48 10^6 /uL (4.18-5.48); Red Cell Distribution Width 14 % (10-15); White Blood Count 12.8 10^3/uL (3.5-10.8)
[2019-06-23 17:56] LABS: Albumin 4.4 g/dL (3.2-5.2); Albumin/Globulin Ratio 1.5 (1-3); BUN/Creatinine Ratio 14.6 (8-20); C Reactive Protein 8.82 mg/L (<8.01); Calcium 9.1 mg/dL (8.6-10.3); EGFR African American 135.4 (>60); EGFR Non-African American 111.9 (>60); Globulin 2.9 g/dL (2-4); Potassium 3.7 mmol/L (3.5-5.0); Total Bilirubin 0.3 mg/dL (0.2-1.0); Total Protein 7.3 g/dL (6.4-8.9)
[2019-06-23] MEDS ORDERED: Iohexol 300* (CONTRAST) 10 ML SDV IV ONE (18:02)
[2019-06-23 19:55] LABS: Urine Appearance Clear; Urine Bilirubin Negative (Negative); Urine Blood Negative (Negative); Urine Color Straw; Urine Glucose Negative (Negative); Urine Ketones Negative (Negative); Urine Nitrite Negative (Negative); Urine Protein Negative (Negative); Urine Specific Gravity 1.056 (1.010-1.030); Urine Urobilinogen Negative (Negative)
[2019-06-23 21:43] VITALS: BP 124/81
== END 2019-06-23 20:28 | disposition home or self-care (01) ==
LOC: ED 16:27
DX: R10.9 Unspecified abdominal pain (principal); R11.2 Nausea with vomiting, unspecified; F17.210 Nicotine dependence, cigarettes, uncomplicated
CPT/HCPCS: 36415; 74177; 80053; 81003; 83605; 83690; 85025; 86140; 96361; 96374; 99283; J2405; Q9967